=== PATIENT | male | born 1945 | race Caucasian/White ===

== ENCOUNTER 2017-08-28 06:59 | Day surgery (SDC) | payer MEDICARE ==
[2017-08-22 13:56] VITALS: BMI 27.6
[~2017-08-28 06:59] MED LIST: LACTATED RINGERS 1,000 ML IV SCH; LIDOCAINE 1% 20 ML VIAL (10MG/ML) FOR IV START INTRADERMA PRN
[2017-08-28 07:18] VITALS: TEMP 98.7
[2017-08-28] MEDS ORDERED: LACTATED RINGERS 1,000 ML IV ONE ×2 (07:30)
[2017-08-28] MEDS ORDERED: PROPOFOL 10 MG/ML 20 ML VIAL IV ONE (07:40)
--- NOTE | 2017-08-28 07:49 | P.GSHP ---
History of Present Illness H&P Date: 08/28/17 Chief Complaint: Screening colonoscopy Cyst 71-year-old male referred from Dr. Person. Patient presents today for screening colonoscopy. He denies any significant GI complaints. 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 COLONOSCOPY Past Anesthesia/Blood Transfusion Reactions: No Reported Reaction Smoking Status: Never smoker - Past Family History Father Family Medical History: Cancer Brother(s) Family Medical History: Cancer Medications and Allergies Home Medications Medication Instructions Recorded Confirmed Type Acetaminophen [Tylenol Arthritis] 1,300 mg PO DAILY 08/22/17 08/22/17 History Cetirizine HCl 10 mg PO DAILY 08/22/17 08/22/17 History Glucosam/Jonathan-Msm1/C/Yannick/Bosw 1 each PO DAILY 08/22/17 08/22/17 History [Glucosamine-Chondroitin Tablet] Losartan/Hydrochlorothiazide 1 each PO DAILY 08/22/17 08/22/17 History [Losartan-Hctz 100-25 mg Tab] Multivit-Min/FA/Lycopen/Lutein 1 each PO DAILY 08/22/17 08/22/17 History [Centrum Silver Men Tablet] Niacin [Niacin ER] 500 mg PO BID 08/22/17 08/22/17 History Bon Aqua-3 Fatty Acids/Fish Oil [Fish 2 each PO DAILY 08/22/17 08/22/17 History Oil 1,000 mg Softgel] Simvastatin [Zocor] 40 mg PO HS 08/22/17 08/22/17 History Allergies Allergy/AdvReac Type Severity Reaction Status Date / Time Penicillins Allergy Rash/Hives Verified 08/22/17 13:45 Surgical - Exam Vital Signs Temp Pulse Resp BP Pulse Ox 98.7 F 88 18 152/83 98 08/28/17 07:17 08/28/17 07:17 08/28/17 07:17 08/28/17 07:17 08/28/17 07:17 - General well developed, no distress - Eyes PERRL - ENT normal pinna - Neck no masses - Respiratory normal expansion - Cardiovascular Rhythm: regular - Abdomen Abdomen: soft, non tender Assessment and Plan Assessment: We'll perform screening colonoscopy.
--- NOTE | 2017-08-28 08:02 | P.OP ---
Date of Procedure: 08/28/17 Preoperative Diagnosis: Screen colonoscopy Postoperative Diagnosis: Diverticulosis Procedure(s) Performed: Colonoscopy Anesthesia: MAC Surgeon: Luis Sykes Pathology: none sent Condition: stable Disposition: PACU Description of Procedure: The patient's placed on the endoscopy table in the lateral position. He received IV sedation. Digital rectal exam was performed which revealed no ebonized. The flexible colonoscope was then placed patient anus passed throughout the entire colon. The ileocecal valve was visualized. Cecum, ascending and transverse colon appeared normal. The descending and sigmoid colon there is mild diverticular changes. There is no evidence of diverticulitis. Scope was then brought back the rectum and this appeared normal.
[2017-08-28 08:08] VITALS: RESP 16
[2017-08-28 08:20] VITALS: BP 133/73; PULSE 67
== END 2017-08-28 08:41 | disposition home or self-care (01) ==
LOC: ORWHC2ENDO 06:59
PROVIDERS: ATTEND Surgery
DX: Z12.11 Encounter for screening for malignant neoplasm of colon (principal); K57.30 Diverticulosis of large intestine without perforation or abscess without bleeding; K21.9 Gastro-esophageal reflux disease without esophagitis; E78.5 Hyperlipidemia, unspecified; I10 Essential (primary) hypertension; Z85.46 Personal history of malignant neoplasm of prostate; Z79.899 Other long term (current) drug therapy; Z88.0 Allergy status to penicillin
CPT/HCPCS: J2704; G0121

== ENCOUNTER → 2018-04-17 | Outpatient (CLI) | payer MEDICARE | LOC: LABWHC1 11:53 | PROVIDERS: ATTEND Urology | DX: C61 Malignant neoplasm of prostate (principal) | CPT/HCPCS: 36415; 84153 ==

== ENCOUNTER → 2019-04-17 | Outpatient (CLI) | payer MEDICARE | END | disposition home or self-care (01) | LOC: LABWHC1 11:52 | PROVIDERS: ATTEND Urology | DX: C61 Malignant neoplasm of prostate (principal) | CPT/HCPCS: 36415; 84153 ==

== ENCOUNTER → 2020-04-05 | Outpatient (CLI) | payer MEDICARE | END | disposition home or self-care (01) | LOC: LABWHC1 11:12 | PROVIDERS: ATTEND Urology | DX: C61 Malignant neoplasm of prostate (principal) | CPT/HCPCS: 36415; 84153 ==

== ENCOUNTER → 2021-04-11 | Outpatient (CLI) | payer MEDICARE | END | disposition home or self-care (01) | LOC: LABWHC1 12:52 | PROVIDERS: ATTEND Urology | DX: C61 Malignant neoplasm of prostate (principal) | CPT/HCPCS: 36415; 84153 ==

== ENCOUNTER → 2022-04-26 | Outpatient (CLI) | payer MEDICARE | END | disposition home or self-care (01) | LOC: LABWHC1 11:37 | PROVIDERS: ATTEND Urology | DX: C61 Malignant neoplasm of prostate (principal) | CPT/HCPCS: 36415; 84153 ==

== ENCOUNTER 2023-04-19 09:30 | Day surgery (SDC) | payer MEDICARE ==
[~2023-04-19 09:30] MED LIST changes: -LACTATED RINGERS 1,000 ML IV SCH; +LIDOCAINE 1% (10MG/ML) FOR IV START INTRADERMA PRN; -LIDOCAINE 1% 20 ML VIAL (10MG/ML) FOR IV START INTRADERMA PRN
[2023-04-19] MEDS: LACTATED RINGERS 1,000 ML IV SCH (09:54)
[2023-04-19 10:34] VITALS: RESP 16; TEMP 97.1
[2023-04-19] MEDS ORDERED: PROPOFOL 10 MG/ML 20 ML VIAL IV ONE (10:51)
[2023-04-19] MEDS ORDERED: LIDOCAINE 1% INJ 10MG/ML (20 ML MDV) ONE (10:51)
--- NOTE | 2023-04-19 10:54 | P.GSHP ---
History of Present Illness H&P Date: 04/19/23 Chief Complaint: Diarrhea This a 77-year-old male who presents today for colonoscopy. Patient had issues with diarrhea. 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 COLONOSCOPY prostatectomy Past Anesthesia/Blood Transfusion Reactions: No Reported Reaction Smoking Status: Never smoker - Past Family History Father Family Medical History: Cancer Brother(s) Family Medical History: Cancer Medications and Allergies Home Medications Medication Instructions Recorded Confirmed Type Acetaminophen [Tylenol Arthritis] 1,300 mg PO DAILY 08/22/17 04/19/23 History Cetirizine HCl 10 mg PO DAILY 08/22/17 04/19/23 History Losartan/Hydrochlorothiazide 1 each PO DAILY 08/22/17 04/19/23 History [Losartan-Hctz 100-25 mg Tab] Mv-Min/Folic/K1/Lycopen/Lutein 1 each PO DAILY 08/22/17 04/19/23 History [Centrum Silver Men Tablet] Kelliher-3 Fatty Acids/Fish Oil [Fish 2 each PO BID 08/22/17 04/19/23 History Oil 1,000 mg Softgel] Simvastatin [Zocor] 40 mg PO HS 08/22/17 04/19/23 History Aspirin [Adult Low Dose Aspirin EC] 81 mg PO DAILY 04/17/23 04/19/23 History Cholestyramine (with Sugar) 1 dose PO DAILY 04/17/23 04/19/23 History [Cholestyramine Packet] Lansoprazole [Prevacid] 30 mg PO DAILY 04/17/23 04/19/23 History Meloxicam [Mobic] 7.5 mg PO DAILY 04/17/23 04/19/23 History Metoprolol Succinate (ER) [Toprol 100 mg PO DAILY 04/17/23 04/19/23 History Xl] Multivit-Mins/Iron/Folic/Lycop 1 each PO DAILY 04/17/23 04/19/23 History [Centrum Men's Tablet] Niacin 500 mg PO BID 04/17/23 04/19/23 History amLODIPine BESYLATE 10 mg PO DAILY 04/17/23 04/19/23 History Allergies Allergy/AdvReac Type Severity Reaction Status Date / Time Penicillins Allergy Rash/Hives Verified 04/19/23 10:06 Surgical - Exam Vital Signs Temp Pulse Resp BP Pulse Ox 97.1 F L 91 16 166/77 96 04/19/23 10:00 04/19/23 10:00 04/19/23 10:00 04/19/23 10:00 04/19/23 10:00 - General well developed, well nourished, no distress - Eyes PERRL - ENT normal pinna, normal nares - Neck no masses - Respiratory normal expansion - Cardiovascular Rhythm: regular - Abdomen Abdomen: soft, non tender Assessment and Plan Assessment: Diarrhea. We'll perform colonoscopy.
--- NOTE | 2023-04-19 11:10 | P.OP ---
Date of Procedure: 04/19/23 Preoperative Diagnosis: Diarrhea Postoperative Diagnosis: Normal colonoscopy Procedure(s) Performed: Colonoscopy Anesthesia: MAC Surgeon: Luis Sykes Pathology: none sent Condition: stable Disposition: PACU Description of Procedure: The patient's placed on the endoscopy table lateral position. He received IV sedation. Digital rectal exam was performed. This revealed no ebonized. The colonoscope was then placed patient anus passed throughout the colon. The scope couldn't be placed in the cecum sigmoid tortuosity valve. Scope was withdrawn. The visualized right colon appeared normal. The transverse colon appeared normal. The descending; was mild diverticulosis. The scope was then brought back the rectum and this appeared normal. Scope withdrawn for patient.
[2023-04-19 11:43] VITALS: BP 123/72; PULSE 79
== END 2023-04-19 11:45 | disposition home or self-care (01) ==
LOC: ORWHC2ENDO 09:30
PROVIDERS: ATTEND Surgery
DX: R19.7 Diarrhea, unspecified (principal); K57.30 Diverticulosis of large intestine without perforation or abscess without bleeding; K63.89 Other specified diseases of intestine; K21.9 Gastro-esophageal reflux disease without esophagitis; I10 Essential (primary) hypertension; E78.5 Hyperlipidemia, unspecified; Z79.899 Other long term (current) drug therapy; Z79.1 Long term (current) use of non-steroidal anti-inflammatories (NSAID); Z79.82 Long term (current) use of aspirin; Z88.0 Allergy status to penicillin
CPT/HCPCS: 45378; J2001; J2704

== ENCOUNTER → 2023-05-08 | Outpatient (CLI) | payer MEDICARE | END | disposition home or self-care (01) | LOC: LABWHC1 11:12 | PROVIDERS: ATTEND Urology | DX: C61 Malignant neoplasm of prostate (principal) | CPT/HCPCS: 36415; 84153 ==

== ENCOUNTER → 2024-04-24 | Outpatient (CLI) | payer MEDICARE | END | disposition home or self-care (01) | LOC: LABWHC1 12:05 | PROVIDERS: ATTEND Urology | DX: C61 Malignant neoplasm of prostate (principal) | CPT/HCPCS: 36415; 84153 ==